=== PATIENT | male | born 1945 | race Caucasian/White ===

== ENCOUNTER 2016-07-27 06:33 | Day surgery (SDC) | payer BC ==
--- NOTE | ~2016-07-27 | EGD ---
EGD REPORT [facility] [address] [place] [address] NAME: ENRIQUE RASMUSSEN : [birth year] STATUS : REG [facility]#: [id number] AGE: 71 ADM/REG DATE : 07/27/16 MR#: [id number] REPORT SERV DATE: 07/27/16 DICTATED BY: CESAR CONNORS DATE: 07/27/16 REPORT STATUS : Draft TRANSCRIBED BY: [facility] DATE: 07/27/16 End[facility] Center Patient Name: Enrique Rasmussen Date of : 1945 Attending MD: CESAR CONNORS MD Procedure Date No Time: 07/27/2016 Procedure: Colonoscopy Indications: High risk colon cancer surveillance: Personal history of non-advanced adenoma; last exam 2012. Patient Profile: Informed consent was obtained from the patient by me prior to the procedure. Risks, benefits, and alternatives were discussed including the risk of bleeding, perforation, infection, reaction to medicine, missed lesion, and cardiopulmonary complications. Referring MD: Samuel Hernadez Medicines: Monitored Anesthesia Care Complications: No immediate complications. Procedure: Pre-Anesthesia Assessment: - ASA Grade Assessment: III - A patient with severe systemic disease. After I obtained informed consent, the scope was passed under direct vision. Throughout the procedure, the patient's blood pressure, pulse, and oxygen saturations were monitored continuously. The CF [id number] was introduced through the anus and advanced to the cecum, identified by appendiceal orifice and ileocecal valve. The colonoscope was slowly withdrawn with careful examination all mucosal surfaces including specific attention around flexures and tip deflection behind folds; retroflexion performed in rectum. The colonoscopy was performed without difficulty. The patient tolerated the procedure well. The quality of the bowel preparation was adequate. The ileocecal valve, appendiceal orifice and rectum were photographed. Findings: A sessile polyp was found at the hepatic flexure. The polyp was 12 mm in size. The polyp was removed with a hot snare. Resection and retrieval were complete. Two hemostatic clips were successfully placed to close defect, needs anticoagulation. A sessile polyp was found at the hepatic flexure. The polyp was 5 mm in size. The polyp was removed with a cold biopsy forceps. Resection and retrieval were complete. Two sessile polyps were found in the descending colon. The polyps were 5 mm in size. These polyps were removed with a cold biopsy forceps. EGD REPORT [address] [address] NAME: ENRIQUE RASMUSSEN : [birth year] STATUS : REG [facility]#: [id number] AGE: 71 ADM/REG DATE : 07/27/16 MR#: [id number] REPORT SERV DATE: 07/27/16 DICTATED BY: CESAR CONNORS DATE: 07/27/16 REPORT STATUS : Draft TRANSCRIBED BY: [email or web address] DATE: 07/27/16 Resection and retrieval were complete. A sessile polyp was found in the rectum. The polyp was 5 mm in size. The polyp was removed with a cold biopsy forceps. Resection and retrieval were complete. Multiple medium-mouthed diverticula were found in the sigmoid colon and in the descending colon. Internal hemorrhoids were found during retroflexion and were mild. Impression: - One 12 mm polyp at the hepatic flexure. Resected and retrieved. Clips were placed. - One 5 mm polyp at the hepatic flexure. Resected and retrieved. - Two 5 mm polyps in the descending colon. Resected and retrieved. - One 5 mm polyp in the rectum. Resected and retrieved. - Diverticulosis in the sigmoid colon and in the descending colon. - Internal hemorrhoids. Recommendation: - Patient has a contact number available for emergencies. The signs and symptoms of potential delayed complications were discussed with the patient. Return to normal activities tomorrow. Written discharge instructions were provided to the patient. - Regular diet. - Continue present medications. - Await pathology results. - Repeat colonoscopy for surveillance based on pathology results. - Restart ASA/Plavix today. Procedure Code(s): --- Professional --- 98687, Colonoscopy, flexible, proximal to splenic flexure; with removal of tumor(s), polyp(s), or other lesion(s) by snare technique 93408, 59, Colonoscopy, flexible, proximal to splenic flexure; with biopsy, single or multiple Diagnosis Code(s): --- Professional --- K62.1, Rectal polyp D12.4, Benign neoplasm of descending colon D12.3, Benign neoplasm of transverse colon K64.8, Other hemorrhoids K57.30, Diverticulosis of large intestine without perforation or abscess without bleeding Z86.010, Personal history of colonic polyps EGD REPORT [facility] [address] [place] [address] NAME: ENRIQUE RASMUSSEN : [birth year] STATUS : [facility]#: [id number] AGE: 71 ADM/REG DATE : 07/27/16 MR#: [id number] REPORT SERV DATE: 07/27/16 DICTATED BY: CESAR CONNORS. DATE: 07/27/16 REPORT STATUS : Draft TRANSCRIBED BY: [email or web address] DATE: 07/27/16 CPT copyright 2013 [employer]. All rights reserved. The codes documented in this report are preliminary and upon medical biller coder review may be revised to meet current compliance requirements. CESAR CONNORS MD 07/27/2016 9:07 AM This report has been signed electronically. Number of Addenda: 0 Note Initiated On: 07/27/2016 8:17 AM Scope Withdrawal Time 0 hours 21 minutes 25 seconds [id number] [place] [id number]
[~2016-07-27 06:33] MED LIST: *UNABLE3; ACCUNEB INH; ACET500CAP PO; ACTOS15 PO; ADVAIR100 INH; ADVAIR250 INH; ASAB PO; ASTEPRO0.15 % NAS; BACDS PO; BENICAR40 PO; CAT1 PO; CIP5 PO; CO Q-10100 MG PO; COSAMIN DS1 TAB PO; DIOVAN320 MG PO; FIBER CAP PO; FIBERCON PO; FISH OIL1200 MG PO; FISH-EPA1000 MG PO; FLOMAX4 PO; FORTAMET1000 MG PO; GLUCPH PO; JANUVIA100 MG PO; KLOR-CON M2020 MEQ PO; L20 PO; L40 PO; LANTUS SC; LANTUSCART SC; LIPITOR20 PO; LISINOPRIL40 MG PO; LOP100 PO; LOP25 PO; LOP50 PO; MAGNESIUM PO; MOVE FREE; MOVE FREE PO; MUCINEX PO; MUCINEX1200 MG PO; NIACIN TR1000 MG PO; NIASPAN500 PO; NIASPAN750 PO; NORV10 PO; NORV5 PO; NOVOPEN SC; OTC NASAL SPRAY; PCET PO; PLAVIX PO; PRAND5 PO; PRIN20 PO; PROTONIX PO; REFENESEN400 MG PO; REQUIP1 PO; SPIRIVA INH; SPIRO25 PO; SYMBICORT 160/41 INH INH; TOPXL100 PO; TOPXL50 PO; TRULICITY0.75 MG/0. SQ; ULTRAM50 PO; WELCHOL 625 MG625 MG OR; WELCHOL 625 MG625 MG PO; X5 PO; ZANTAC150 MG PO; ZESTRIL40 MG PO; [UNRECOGNIZED DRUG - OTHER]
== END 2016-07-27 23:59 | disposition home health service (06) ==
LOC: DMU 06:33
PROVIDERS: Internal Medicine Gastroenterology
PROC: 0DBM8ZX Excision of Descending Colon, Via Natural or Artificial Opening Endoscopic, Diagnostic (ICD-10-PCS; 2016-07-27)
PROC: 0DBL8ZZ Excision of Transverse Colon, Via Natural or Artificial Opening Endoscopic (ICD-10-PCS; 2016-07-27)
PROC: 0DBL8ZX Excision of Transverse Colon, Via Natural or Artificial Opening Endoscopic, Diagnostic (ICD-10-PCS; principal; 2016-07-27 08:00)
PROC: 0DBP8ZX Excision of Rectum, Via Natural or Artificial Opening Endoscopic, Diagnostic (ICD-10-PCS; 2016-07-27 08:00)
DX: Z12.11 Encounter for screening for malignant neoplasm of colon (principal); D12.3 Benign neoplasm of transverse colon; K63.5 Polyp of colon; K62.1 Rectal polyp; K64.8 Other hemorrhoids; K57.30 Diverticulosis of large intestine without perforation or abscess without bleeding; J44.9 Chronic obstructive pulmonary disease, unspecified; G47.33 Obstructive sleep apnea (adult) (pediatric); Z99.81 Dependence on supplemental oxygen; I10 Essential (primary) hypertension; E78.00 Pure hypercholesterolemia, unspecified; I25.119 Atherosclerotic heart disease of native coronary artery with unspecified angina pectoris; K21.9 Gastro-esophageal reflux disease without esophagitis; E11.9 Type 2 diabetes mellitus without complications; E66.01 Morbid (severe) obesity due to excess calories; Z88.0 Allergy status to penicillin; Z86.010 Personal history of colon polyps; Z87.891 Personal history of nicotine dependence
CPT/HCPCS: 82962; 88305